=== PATIENT | male | born 1990 | race Two or more races ===

== ENCOUNTER 2022-07-18 08:00 | Outpatient (CLI) | payer OTHER | END 2022-07-18 08:05 | disposition home or self-care (01) | LOC: PPH VACUNA 08:00 | PROVIDERS: ATTEND Emergency Medicine Pediatric Emergency Medicine | DX: Z23 Encounter for immunization (principal) ==

== ENCOUNTER 2022-09-04 09:33 | Outpatient (CLI) | payer OTHER | END 2022-09-04 09:43 | disposition home or self-care (01) | LOC: PPH VACUNA 09:33 | PROVIDERS: ATTEND Emergency Medicine Pediatric Emergency Medicine | DX: Z23 Encounter for immunization (principal) ==

== ENCOUNTER 2023-07-18 13:33 | Outpatient (CLI) | payer OTHER | END 2023-07-18 13:53 | disposition home or self-care (01) | LOC: RAD 13:33 | DX: M77.32 Calcaneal spur, left foot (principal) ==

== ENCOUNTER 2023-07-26 08:40 | Outpatient (CLI) | payer OTHER | END 2023-07-26 08:50 | disposition home or self-care (01) | LOC: PPH VACUNA 08:40 | PROVIDERS: ATTEND Emergency Medicine Pediatric Emergency Medicine | DX: Z23 Encounter for immunization (principal) ==